=== PATIENT | female | born 1965 | race Hispanic/Latino ===

== ENCOUNTER 2023-08-02 20:20 | Emergency (ER) | payer BC, SELFPAY ==
[~2023-08-02] VITALS: Ht 160 cm; Wt 80.3 kg
[~2023-08-02 20:20] MED LIST: SULF1TAB42 PO; TRAM50TA2 PO
[2023-08-02 23:24] VITALS: BP 164/90; PULSE 74; RESP 17; O2SAT 99
== END 2023-08-02 23:28 | disposition home or self-care (01) ==
LOC: EDH 20:20
DX: D25.9 Leiomyoma of uterus, unspecified (principal); Z79.899 Other long term (current) drug therapy; Z98.890 Other specified postprocedural states
CPT/HCPCS: 76856